=== PATIENT | female | born 1940 | race Two or more races ===

== ENCOUNTER 2019-01-01 13:57 | Emergency (ER) | payer OTHER ==
[~2019-01-01] VITALS: Ht 162.6 cm; Wt 63.5 kg
[~2019-01-01 13:57] MED LIST: ZESTRIL2.5 MG; ZITHROMAX500 MG PO; ZOCOR20 MG
== END 2019-01-01 15:52 | disposition home or self-care (01) ==
LOC: ER 13:57
DX: J16.8 Pneumonia due to other specified infectious organisms (principal)

== ENCOUNTER 2019-08-17 20:49 | Emergency (ER) | payer OTHER ==
[~2019-08-17] VITALS: Ht 162.6 cm; Wt 64.4 kg
[2019-08-17] MEDS ORDERED: AVAPRO150 MG (21:01)
[2019-08-17] MEDS ORDERED: CLONAZEPAM0.5 MG (21:02)
== END 2019-08-17 21:32 | disposition home or self-care (01) ==
LOC: ER 20:49
DX: F06.4 Anxiety disorder due to known physiological condition (principal); I10 Essential (primary) hypertension

== ENCOUNTER 2020-01-24 10:30 | Emergency (ER) | payer OTHER ==
[~2020-01-24] VITALS: Ht 160 cm; Wt 64.4 kg
[~2020-01-24 10:30] MED LIST changes: +AVAPRO150 MG; +CLONAZEPAM0.5 MG
== END 2020-01-24 12:49 | disposition home or self-care (01) ==
LOC: ER 10:30
DX: I10 Essential (primary) hypertension (principal); Z20.828 Contact with and (suspected) exposure to other viral communicable diseases; F06.4 Anxiety disorder due to known physiological condition

== ENCOUNTER 2020-04-22 17:06 | Emergency (ER) | payer OTHER ==
[~2020-04-22] VITALS: Ht 160 cm; Wt 65.8 kg
[2020-04-22] MEDS ORDERED: ZESTRIL20 MG (17:18)
[2020-04-22] MEDS ORDERED: SERTRALINE20 MG/1 ML (17:18)
[2020-04-22] MEDS ORDERED: VENTOLIN HFA18 GM (17:19)
[2020-04-22] MEDS ORDERED: ARICEPT10 MG (17:19)
[2020-04-22] MEDS ORDERED: SKELAXIN800 MG (17:19)
== END 2020-04-22 20:05 | disposition home or self-care (01) ==
LOC: ER 17:06
DX: J45.998 Other asthma (principal); Z03.818 Encounter for observation for suspected exposure to other biological agents ruled out; R06.02 Shortness of breath; R05 Cough

== ENCOUNTER 2021-09-05 12:20 | Emergency (ER) | payer OTHER ==
[~2021-09-05] VITALS: Ht 160 cm; Wt 67.1 kg
[~2021-09-05 12:20] MED LIST changes: +ARICEPT10 MG; +SERTRALINE20 MG/1 ML; +SKELAXIN800 MG; +VENTOLIN HFA18 GM; +ZESTRIL20 MG
[2021-09-05] MEDS ORDERED: HYDRALAZINE HCL50 MG PO (12:42)
== END 2021-09-05 15:21 | disposition home or self-care (01) ==
LOC: ER 12:20
DX: J22 Unspecified acute lower respiratory infection (principal); J45.909 Unspecified asthma, uncomplicated